=== PATIENT | female | born 1995 | race Caucasian/White ===

== ENCOUNTER 2020-09-16 11:15 | Day surgery (SDC) | payer OTHER ==
[2020-09-11 14:40] VITALS: BMI 20.9
[~2020-09-16 11:15] MED LIST: CLINDAMYCIN 900 MG in DEXTROSE 5% IN WATER 50 ML IVPB PRN
[2020-09-16] MEDS ORDERED: HYDROmorphone 0.5 MG/0.5 ML SYRINGE IVP PRN (11:49)
[2020-09-16] MEDS ORDERED: ONDANSETRON 4 MG/2 ML VIAL IVP ONE ×2 (11:49→15:28)
[2020-09-16] MEDS ORDERED: DEXAMETHASONE SOD PHOSPHATE 4 MG/ML 1 ML VIAL IV ONE (11:49)
[2020-09-16] MEDS ORDERED: LACTATED RINGERS 1,000 ML IV SCH (11:49)
[2020-09-16 12:14] VITALS: RESP 16; TEMP 98.8
[2020-09-16] MEDS ORDERED: fentaNYL (PF) 50 MCG/ML 2 ML AMP IVP ONE (12:18)
[2020-09-16] MEDS ORDERED: MIDAZOLAM 2 MG/2 ML VIAL IVP ONE (12:18)
[2020-09-16] MEDS ORDERED: ROPIVACAINE 5 MG/ML 30 ML VIAL ONE (12:46)
[2020-09-16] MEDS ORDERED: KETOROLAC 15 MG/ML 1 ML VIAL ONE (12:46)
[2020-09-16] MEDS ORDERED: fentaNYL (PF) 50 MCG/ML 2 ML AMP ONE (12:46)
[2020-09-16] MEDS ORDERED: PROPOFOL 10 MG/ML 20 ML VIAL IV ONE (12:46)
[2020-09-16] MEDS ORDERED: MIDAZOLAM 2 MG/2 ML VIAL ONE (12:46)
[2020-09-16] MEDS ORDERED: LIDOCAINE 1% INJ 10MG/ML (20 ML MDV) ONE (12:46)
[2020-09-16] MEDS ORDERED: LACTATED RINGERS 1,000 ML IV ONE (13:51)
--- NOTE | 2020-09-16 14:08 | P.ANPRN ---
Procedure Note - Anesthesia - Nerve Block Performed Left Popliteal Single Time Out Performed: Yes (1216) Date of Procedure: 09/16/20 Procedure Start Time: 12:18 Procedure Stop Time: 12:22 Location of Patient: PreOp Indication: Acute Post-Operative Pain, Requested by Surgeon Specifically requested for management of pain by DrGiacomo: Memo Tan Sedation Type: Sedate with meaningful contact maintained Preparation: Sterile Prep Position: Right Lateral Catheter: None Needle Types: Pajunk Needle Gauge: 21 Ultrasound used to visualize needle placement: Yes Ultrasound used to observe medication spread: Yes Injectate: 0.5% Ropivacaine (see comment for volume) (15cc) Blood Aspirated: No Pain Paresthesia on Injection Noted: No Resistance on Injection: Normal Image Stored and Saved: Yes Events: Uneventful and Well Tolerated Left Adductor Canal Single Time Out Performed: Yes (1216) Date of Procedure: 09/16/20 Procedure Start Time: 12:23 Procedure Stop Time: 12:28 Location of Patient: PreOp Indication: Acute Post-Operative Pain, Requested by Surgeon Specifically requested for management of pain by DrGiacomo: Memo Tan Sedation Type: Sedate with meaningful contact maintained Preparation: Sterile Prep Position: Supine Catheter: None Needle Types: Pajunk Needle Gauge: 21 Ultrasound used to visualize needle placement: Yes Ultrasound used to observe medication spread: Yes Injectate: 0.5% Ropivacaine (see comment for volume) Blood Aspirated: No Pain Paresthesia on Injection Noted: No Resistance on Injection: Normal Image Stored and Saved: Yes Events: Uneventful and Well Tolerated
--- NOTE | 2020-09-16 14:24 | P.OP ---
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 Timeout was taken to confirm correct patient identifiers, correct procedure, and correct site of surgery. A well-padded tourniquet was placed on the left calf. The patient was placed under general anesthetic. Then the left leg was prepped and draped in the usual manner. The left leg was exsanguinated and the tourniquet inflated to 250 mmHg. Attention was directed over the anterior lateral ankle were curved incision was made just anterior to the lateral malleolus. Incision was deepened down to the subcutaneous layer careful to identify, avoid, and retract any neurovascular structures and cauterize any bleeding vessels. Blunt dissection was continued down to the ankle joint caps ule ligaments. Those tissues were incised off the anterior surface the lateral malleolus. The cortical bone of the anterior surface the lateral malleolus was removed and smoothed with a bone rasp. With the ankle held in neutral position of the capsules palpated over the lateral talar body at the junction of the neck. A small stab incision was made at this junction. 3.4 mm drill bit was then used to create the drill hole for the anchor into the talar body utilizing described technique. The hole was tapped and then the anchor inserted and advanced to proper depth. Then attention was directed to the lateral malleolus with the drill holes for the Arthrex fiber Isaak anchors were made one near the distal tip and one superiorly. Anchors were inserted and and impacted to proper depth. Tension was placed on the suture to lock them in place. The wound is then irrigated with antibiotic saline. With the ankle held in maximal dorsiflexion and eversion the suture was utilized to repair the distal capsule ligament structures back to the anterior surface of the lateral malleolus. The same sutures are used to oversew the soft tissue flap of the fibula and a pants over vest fashion. Then the lateral malleolus was palpated between the 2 fiber Isaak anchors were small stab incision was made to the periosteum and another 3.4 mm drill hole was made. The suture from the first anchor was then fed through that this sap architect which was then aligned with the drill hole. Utilizing proper tensioning techniques the anchor was inserted with the suture in the anchor inserted and advanced until it locked the suture in place. The ankle was tested for stability were anterior drawer and inversion stress testing were negative. The wound is irrigated with antibiotic saline. Subcu closure done with 4-0 Monocryl and skin closure done with 4-0 Stratafix. When Arthrex jumpstart dressing was applied over the incisions and a dry sterile dressings applied to the left ankle. The tourniquet was released and capillary refill return to all digits on the left foot. The patient was then placed in a well-padded well molded plaster posterior mold sugar tong splint. Ankle was held in neutral position as it dried. Anesthesia was then reversed and the patient was taken recovery with vital signs stable.
[2020-09-16] MEDS ORDERED: HYDROcodone/APAP 5-325MG 1 EACH TAB ONE (15:10)
[2020-09-16] MEDS ORDERED: HYDROcodone/APAP 5-325MG 1 EACH TAB PO ONE (15:12)
[2020-09-16] MEDS ORDERED: ONDANSETRON 4 MG/2 ML VIAL ONE (15:26)
[2020-09-16 15:37] VITALS: BP 112/72
[2020-09-16 15:51] VITALS: PULSE 55
--- NOTE | 2020-09-23 18:08 | CDI ---
Outpatient Documentation Clarification Form Date: 09/23/20 CDI/[facility] Operator Name: Sara Mendez Phone: If any questions, call Suzanne Reynolds Supervisor Customer Records Division at Patient Name: Frannie Chavez Admit Date: 09/16/20 Discharge Date" 09/16/20 ATTENTION: The [facility] Coding Staff appreciate your assistance in clarifying documentation. Please respond to the clarification below the line at the bottom an electronically sign. The [facility] Coding Staff will review the response and follow-up if needed. Please note: Queries are made part of the Legal Health Record If you have any questions, please contact the Supervisor Customer Records Division. Dear Dr. Eastman, Please provide clarification as to the exact area of the popliteal nerve block. Greatest specificity is required for medical necessity support. See Below. A popliteal block procedure note, without a description of the anatomy is not helpful in determining the correct code to report. A popliteal fossa injection is reported with CPT code 92233 (sciatic nerve), whereas a saphenous popliteal is reported with CPT code 10556 (other peripheral nerve block). Please clarify. Thank you for your kind consideration. Popliteal fossa MTDD
== END 2020-09-16 16:02 | disposition home or self-care (01) ==
LOC: OR 11:15
PROVIDERS: ATTEND Podiatrist
DX: M25.372 Other instability, left ankle (principal); G89.29 Other chronic pain; Z87.891 Personal history of nicotine dependence; Z79.3 Long term (current) use of hormonal contraceptives; Z88.6 Allergy status to analgesic agent; Z88.0 Allergy status to penicillin; Z88.1 Allergy status to other antibiotic agents
CPT/HCPCS: 27698; 64447; 81025; 64445; 76942; C1713 ×2; J2250; J1100; J2405; J2001; J3010; J2795; J1885; J2704; J1170